=== PATIENT | male | born 1985 | race Caucasian/White ===

== ENCOUNTER 2019-08-18 16:26 | Emergency (ER) | payer SELFPAY ==
[2019-08-18] MEDS ORDERED: LIDOCAINE 1% 10 ML VIAL INJ ONE ×2 (16:43→16:50)
[2019-08-18] MEDS ORDERED: TETANUS,DIPHTHERIA,PERTUSSIS 1 EA SYG IM ONE (16:50)
--- NOTE | 2019-08-18 16:53 | ED.PDOC ---
History of Present Illness - General Chief Complaint: Laceration Stated Complaint: Upper lip laceration Time Seen by Provider: 08/18/19 16:33 Source: patient, RN notes reviewed, Vital Signs reviewed, RN/MD Exam Limitations: no limitations - History of Present Illness Initial Comments: Patient is a 33-year-old male who presents with left upper lip laceration. States [place] and the dog's paw hit him in the left lip causing a laceration approximately 30 minutes prior to arrival. Bleeding resolved with direct pressure. Patient is unsure when his last tetanus shot is. He denies any other injuries. Denies any difficulty speaking or breathing. Allergies/Adverse Reactions: Allergies Penicillins Adverse Reaction (Verified 08/18/19 16:56) Home Medications: Ambulatory Orders NK 08/18/19 Review of Systems - Review of Systems Constitutional: Denies: chills, fever EENTM: Denies: blurred vision, double vision Respiratory: Denies: cough, short of breath Cardiology: Denies: palpitations, syncope Musculoskeletal: Denies: back pain, neck pain Skin: States: see HPI All other Systems: Reviewed and Negative Family Medical History - Family History Mother Family History: No Known Living Status: Still Living Physical Exam - Physical Exam General Appearance: Alert, No apparent distress Ears, Nose, Throat: other - There is a 2 cm laceration to the left upper lip that involves both the skin then crosses the vermilion border and involves the mucosal surface. There is no active bleeding. He is able to purse lips. No dental tenderness or loose teeth. Neck: non-tender, full range of motion, supple Respiratory: chest non-tender, lungs clear, normal breath sounds, no respiratory distress Cardiovascular/Chest: regular rate, rhythm, no edema Gastrointestinal/Abdominal: non tender, soft, no pulsatile mass Back Exam: other - No vertebral tenderness to neck or back Extremity: normal range of motion, non-tender, normal inspection Procedures - Laceration/Wound Repair Left Upper Face Wound Length (cm): 2 Wound's Depth, Shape: into muscle, linear Wound Explored: clean Irrigated w/ Saline (cc's): 200 Betadine Prep?: No Anesthesia: 1% Lidocaine Wound Repaired With: sutures Suture Size/Type: 4:0, vicryl rapide Number of Sutures: 5 Layer Closure?: No - Additional Procedures Progress: Infraorbital nerve block. 25G needle used and approached by mucosal surface and injected 5 cc lidocaine w/o epi with good anesthesia to area. Departure - Departure Clinical Impression: Lip laceration Qualifiers: Encounter type: initial encounter Qualified Code(s): S01.511A - Laceration without foreign body of lip, initial encounter Time of Disposition: 17:14 Disposition: Discharge to Home or Self Care Condition: Good Departure Forms: ED Discharge - Pt. Copy, Patient Portal Self Enrollment Instructions: DI for Laceration Repair Diet: resume usual diet Activity: increase activity as tolerated Home Medications: Ambulatory Orders NK 08/18/19 Additional Instructions: follow up with your PCP in 1-2 days for recheck. Keep wound clean and dry
[2019-08-18] MEDS ORDERED: HYDROcodone 5MG/APAP 325MG 1 EA TAB PO ONE (17:46)
[2019-08-18 18:33] VITALS: BP 134/102; TEMP 99.3; O2SAT 97
== END 2019-08-18 17:55 | disposition home or self-care (01) ==
LOC: ER 16:26
DX: S01.511A Laceration without foreign body of lip, initial encounter (principal); W54.1XXA Struck by dog, initial encounter; Y92.828 Other wilderness area as the place of occurrence of the external cause